=== PATIENT | male | born 1985 | race Caucasian/White ===

== ENCOUNTER 2021-11-29 10:01 | Emergency (ER) | payer OTHER, SELFPAY ==
[2021-11-29 10:41] VITALS: BP 159/72; PULSE 79; RESP 20; TEMP 36.4; O2SAT 100; BMI 22.8
[2021-11-29 11:50] LABS: Add Manual Diff / Slide Review NO; Basophils Absolute Auto 0 /uL (0-100); Basophils Percent Auto 0.6 % (0-2); Eosinophils Absolute Auto 0 /uL (0-450); Hematocrit 37.4 % (41-53); Lymphocytes Absolute Auto 1000 /uL (1100-4500); Lymphocytes Percent Auto 19.2 % (25-40); Mean Corpuscular HGB Conc 34.8 % (30-36); Mean Corpuscular Hemoglobin 32.2 PG (26-34); Mean Corpuscular Volume 92.6 fL (80-100); Monocytes Absolute Auto 200 /uL (0-900); Monocytes Percent Auto 4.4 % (3-14); Neutrophils Absolute Auto 4100 /uL (1500-7000); Neutrophils Percent Auto 75.8 % (50-75); Platelet Count 423 X10^3/uL (150-400); Red Blood Cell Count 4.04 X10^6/uL (4.5-5.9); Red Cell Distribution Width 13.4 % (11.6-14.8); White Blood Cell Count 5.4 X10^3/uL (4.5-11.0)
[2021-11-29] MEDS: PANTOPRAZOLE 40 MG VIAL IV (11:52)
[2021-11-29] MEDS: ONDANSETRON 4 MG/2 ML INJ IV (11:52)
[2021-11-29 12:02] LABS: Alanine Aminotransferase 30 IU/L (<50); Albumin 4.4 g/dL (3.5-5.0); Albumin Globulin Ratio 1.5 (1.0-2.8); Alkaline Phosphatase 58 U/L (38-126); Aspartate Aminotransferase 63 IU/L (17-59); Bilirubin Total 0.5 mg/dL (0.2-1.3); Blood Urea Nitrogen 10 mg/dL (9-20); Calcium 9.2 mg/dL (8.4-10.2); Carbon Dioxide 26 mmol/L (22-32); Chloride 107 mmol/L (98-107); Estimated Glomerular Filt Rate > 60 mL/min (>60); Glucose 118 mg/dL (70-100); HEMOLYSIS 18 (0-50); Lipase 47 U/L (23-300); Potassium 3.2 mmol/L (3.4-5.1); Sodium 141 mmol/L (137-145); Total Protein 7.4 g/dL (6.3-8.2)
--- NOTE | 2021-11-29 13:03 | ED.NAVMDI ---
HPI - Nausea/Vomiting/Diarrhea <Natan Pompa PA-C - Last Filed: 11/29/21 13:29> General Chief complaint: Abdominal Pain Stated complaint: abd pain couple hours Time Seen by Provider: 11/29/21 11:49 Source: patient Mode of arrival: Family Vehicle History of Present Illness HPI Narrative: Patient is a 36-year-old male who presents to the emergency room today with complaint of nausea. 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 States that he cannot effectively perform his job and needs some paperwork that he has in his possession to be filled out returned his chart by him. Denies any vomiting shortness of breath chest pain fever or chills. Related Data Previous Rx's Medication Instructions Recorded ondansetron 4 mg disintegrating 4 mg PO Q8H #14 tabs 11/29/21 tablet Allergies Allergy/AdvReac Type Severity Reaction Status Date / Time No Known Drug Allergies Allergy Verified 11/29/21 10:41 Review of Systems <Natan Pompa PA-C - Last Filed: 11/29/21 13:29> Review of Systems Narrative: R.O.S.: General: No fever, chills or fatigue. Cardiovascular: No chest pain or palpitations Respiratory: No S.O.B. HEENT: No congestion, ear pain, rhinorrhea, sore throat or tinnitus Gastrointestinal: Nausea without vomiting Skin: No rash or associated abnormalities Musculoskeletal: No pain in muscles or joints, no limitation of range of motion, no paresthesia or numbness. ?? Neurological: Awake, alert and in not apparent distress. No Headaches, changes in vision or other related neurological concerns. Patient History <Natan Pompa PA-C - Last Filed: 11/29/21 13:29> Social History Smoking Status: Former smoker Smoking Status: Former smoker tobacco type: cigarettes alcohol intake frequency: 0-2 drinks per day Substance Use Type: does not use Exam <GUZMAN Dillon Last Filed: 11/29/21 13:29> Narrative Exam Narrative: Physical Exam: ? General: normal appearance, well developed, well nourished, alert, and awake. Not in acute distress. ? Head: Normocephalic, no lesions. Chest: Lungs CTAB, no rales, rhonchi or wheezes. ?? Heart: RRR, no murmurs, rubs or gallops. Eyes: PERRLA, EOM's full, conjunctivae clear. ? Neuro: Physiological, no localizing findings, CN3-12 intact. ?? Extremities: Warm, well perfused, FROM, no deformities, no edema. ?? Skin: Normal, no rashes, no lesions noted. ?? PSYCHIATRIC: The mood is good, no blunted affect. Speech is clear. Thought process is linear, thought content is appropriate. The voice is without significant inflection. Gastrointestinal: Soft; NT; ND; Pos BS with Neg. rebound tenderness. No scars or major deformities noted on Visual Inspection. Initial Vital Signs Initial Vital Signs: Vital Signs Temperature 97.5 F L 11/29/21 10:41 Pulse Rate 79 11/29/21 10:41 Respiratory Rate 20 11/29/21 10:41 Blood Pressure 159/72 H 11/29/21 10:41 Pulse Oximetry 100 11/29/21 10:41 Oxygen Delivery Method 11/29/21 10:41 <DO Amandeep Hall Last Filed: 12/05/21 08:12> Initial Vital Signs Initial Vital Signs: Vital Signs Temperature 97.5 F L 11/29/21 10:41 Pulse Rate 79 11/29/21 10:41 Respiratory Rate 20 11/29/21 10:41 Blood Pressure 159/72 H 11/29/21 10:41 Pulse Oximetry 100 11/29/21 10:41 Oxygen Delivery Method 11/29/21 10:41 Course <Natan Pompa PA-C - Last Filed: 11/29/21 13:29> Orders Ordered: Discontinued Medications Ondansetron HCl (Ondansetron 4 Mg/2 Ml Inj) 4 mg IV NOW ONE Stop: 11/29/21 11:47 Last Admin: 11/29/21 11:52 Dose: 4 mg Documented By: AT Pantoprazole Sodium (Pantoprazole 40 Mg Vial) 40 mg IV NOW ONE Stop: 11/29/21 11:48 Last Admin: 11/29/21 11:52 Dose: 40 mg Documented By: AT Vital Signs Vital signs: Vital Signs - 8 hr 11/29/21 10:41 Temperature 97.5 F L Pulse Rate 79 Respiratory Rate 20 Blood Pressure 159/72 H Pulse Oximetry 100 Oxygen Delivery Method Room Air <DO Amandeep Hall Filed: 12/05/21 08:12> Orders Ordered: Discontinued Medications Ondansetron HCl (Ondansetron 4 Mg/2 Ml Inj) 4 mg IV NOW ONE Stop: 11/29/21 11:47 Last Admin: 11/29/21 11:52 Dose: 4 mg Documented By: AT Pantoprazole Sodium (Pantoprazole 40 Mg Vial) 40 mg IV NOW ONE Stop: 11/29/21 11:48 Last Admin: 11/29/21 11:52 Dose: 40 mg Documented By: AT Vital Signs Vital signs: Vital Signs - 8 hr 11/29/21 10:41 Temperature 97.5 F L Pulse Rate 79 Respiratory Rate 20 Blood Pressure 159/72 H Pulse Oximetry 100 Oxygen Delivery Method Room Air MDM - Nausea/Vomiting/Diarrhea <Natan Pompa PA-C - Last Filed: 11/29/21 13:29> Lab Data Result diagrams: 11/29/21 11:40 11/29/21 11:40 Labs: Lab Results 11/29/21 11/29/21 Range/Units 11:40 11:40 WBC 5.4 (4.5-11.0) X10^3/uL RBC 4.04 L (4.5-5.9) X10^6/uL Hgb 13.0 L (13.5-17.5) g/dL Hct 37.4 L (41-53) % MCV 92.6 (80-100) fL MCH 32.2 (26-34) PG MCHC 34.8 (30-36) % RDW 13.4 (11.6-14.8) % Plt Count 423 H (150-400) X10^3/uL Neut % (Auto) 75.8 H (50-75) % Lymph % (Auto) 19.2 L (25-40) % [place] % (Auto) 4.4 (3-14) % Eos % (Auto) 0.0 L (2-4) % Baso % (Auto) 0.6 (0-2) % Neut # (Auto) 4100 (1019-5363) /uL Lymph # (Auto) 1000 L (7090-7135) /uL [place] # (Auto) 200 (0-900) /uL Eos # (Auto) 0 (0-450) /uL Baso # (Auto) 0 (0-100) /uL Sodium 141 (137-145) mmol/L Potassium 3.2 L (3.4-5.1) mmol/L Chloride 107 (98-107) mmol/L Carbon Dioxide 26 (22-32) mmol/L BUN 10 (9-20) mg/dL Creatinine 0.50 L (0.66-1.25) mg/dL Estimated GFR > 60 (>60) mL/min BUN/Creatinine Ratio 20.0 (6-22) Glucose 118 H (70-100) mg/dL Calcium 9.2 (8.4-10.2) mg/dL Total Bilirubin 0.5 (0.2-1.3) mg/dL AST 63 H (17-59) IU/L ALT 30 (<50) IU/L Alkaline Phosphatase 58 (38-126) U/L Total Protein 7.4 (6.3-8.2) g/dL Albumin 4.4 (3.5-5.0) g/dL Globulin 3.0 (1.7-4.1) g/dL Albumin/Globulin Ratio 1.5 (1.0-2.8) Lipase 47 (23-300) U/L MDM Narrative Medical decision making narrative: Patient is 28-year-old male who presents to the emergency room today with complaint nausea this started last night. Labs and physical exam did not reveal any acute or emergent concerns at this time. Anti-nausea meds ordered and paperwork for patient's job completed and the patient to be discharged. Patient to return to the emergency room should any emergent concerns arise. Patient agrees with plan <Jackie Boudreaux, - Last Filed: 12/05/21 08:12> Lab Data Labs: Lab Results 11/29/21 11/29/21 Range/Units 11:40 11:40 WBC 5.4 (4.5-11.0) X10^3/uL RBC 4.04 L (4.5-5.9) X10^6/uL Hgb 13.0 L (13.5-17.5) g/dL Hct 37.4 L (41-53) % MCV 92.6 (80-100) fL MCH 32.2 (26-34) PG MCHC 34.8 (30-36) % RDW 13.4 (11.6-14.8) % Plt Count 423 H (150-400) X10^3/uL Neut % (Auto) 75.8 H (50-75) % Lymph % (Auto) 19.2 L (25-40) % [place] % (Auto) 4.4 (3-14) % Eos % (Auto) 0.0 L (2-4) % Baso % (Auto) 0.6 (0-2) % Neut # (Auto) 4100 (6364-8038) /uL Lymph # (Auto) 1000 L (0336-8150) /uL [place] # (Auto) 200 (0-900) /uL Eos # (Auto) 0 (0-450) /uL Baso # (Auto) 0 (0-100) /uL Sodium 141 (137-145) mmol/L Potassium 3.2 L (3.4-5.1) mmol/L Chloride 107 (98-107) mmol/L Carbon Dioxide 26 (22-32) mmol/L BUN 10 (9-20) mg/dL Creatinine 0.50 L (0.66-1.25) mg/dL Estimated GFR > 60 (>60) mL/min BUN/Creatinine Ratio 20.0 (6-22) Glucose 118 H (70-100) mg/dL Calcium 9.2 (8.4-10.2) mg/dL Total Bilirubin 0.5 (0.2-1.3) mg/dL AST 63 H (17-59) IU/L ALT 30 (<50) IU/L Alkaline Phosphatase 58 (38-126) U/L Total Protein 7.4 (6.3-8.2) g/dL Albumin 4.4 (3.5-5.0) g/dL Globulin 3.0 (1.7-4.1) g/dL Albumin/Globulin Ratio 1.5 (1.0-2.8) Lipase 47 (23-300) U/L Discharge Plan Departure Patient Disposition: Home Clinical Impression: Nausea Instructions: DI for Nausea -- Adult Activity Restrictions/Additional Instructions: *You have been diagnosed with nausea. Your labs are not revealed any emergent concerns at this time. And I have ordered some medications for your nausea. You have been issued a prescription. Also had completed as not fit for duty at this time. [ ] *What to do: *Please continue to take your regular medications as directed. [ ] New medication prescriptions sent to your pharmacy: [ ] [x] New medication written as a paper prescription [ ] No new medications given *Please follow up with your primary care provider in 2-3 days, call for an appointment. Let them know you were seen in the Emergency Department and that we ask that you be seen in follow up. We will electronically transmit a record of today's note if your PCP is in our system *If you do not have a primary care provider please contact [facility] Resource line at [phone]. They will ask some questions about your medical history and help get you set up with a doctor in the community. *Return to Emergency Department if you should have any new, worsening or concerning symptoms, such as [fever greater than 101 F, shaking chills, worsening pain, persistent vomiting or other bothersome symptoms] Prescriptions: New ondansetron 4 mg tablet,disintegrating 4 mg PO Q8H Qty: 14 0RF Visit Report Forms: Patient Portal/API <Jackie Boudreaux, - Last Filed: 12/05/21 08:12> Cosign ED Attending Kwasiature Attestation: I was immediately available in the department for consultation. Documentation has been reviewed. Case was discussed.
--- NOTE | 2021-11-29 13:13 | PC.NURSE ---
Patient is aaox3/3, easily arousable to voice. Attempted to provide urine sample but dropped sample on ground prior to capping.
== END 2021-11-29 13:24 | disposition home or self-care (01) ==
PROVIDERS: Emergency Medicine; Emergency Provider Physician Assistant
DX: R11.0 Nausea (principal)
CPT/HCPCS: 36415; 80053; 83690; 85025; 96374; 96375; 99284; C9113; J2405